=== PATIENT | female | born 1980 | race Caucasian/White ===

== ENCOUNTER 2022-10-10 16:31 | Outpatient (CLI) | payer OTHER | END 2022-10-10 17:33 | disposition home or self-care (01) | LOC: NST 16:31 | PROVIDERS: ATTEND Obstetrics & Gynecology Maternal & Fetal Medicine | DX: Z34.83 Encounter for supervision of other normal pregnancy, third trimester (principal) ==

== ENCOUNTER 2022-10-18 06:44 | Inpatient (IN) | payer OTHER ==
[~2022-10-18] VITALS: Ht 154.9 cm; Wt 2.3 kg
[2022-10-18] MEDS ORDERED: ECOTRIN81 MG PO (10:00)
[2022-10-18] MEDS ORDERED: PRENA1 TRUE CO1 EACH PO (10:00)
== END 2022-10-21 11:16 | disposition home or self-care (01) | DRG 785 ==
LOC: OB/GYN 06:44 → LDR 06:44 → OB/GYN 10-19 11:24
PROVIDERS: ADMIT Obstetrics & Gynecology Gynecology; ATTEND Obstetrics & Gynecology Gynecology
PROC: 4A1HXCZ Monitoring of Products of Conception, Cardiac Rate, External Approach (ICD-10-PCS; 2022-10-18)
PROC: 0UB70ZZ Excision of Bilateral Fallopian Tubes, Open Approach (ICD-10-PCS; 2022-10-19)
PROC: 10D00Z1 Extraction of Products of Conception, Low, Open Approach (ICD-10-PCS; principal; 2022-10-19 08:00)
DX: O36.5930 Maternal care for other known or suspected poor fetal growth, third trimester, not applicable or unspecified (principal); O34.211 Maternal care for low transverse scar from previous cesarean delivery; Z30.2 Encounter for sterilization; Z20.822 Contact with and (suspected) exposure to COVID-19; Z37.0 Single live birth